=== PATIENT | female | born 1955 | race Caucasian/White ===

== ENCOUNTER 2023-02-06 09:45 | Day surgery (SDC) | payer MEDICARE, OTHER ==
[~2023-02-06 09:45] MED LIST: AMANTADINE100 M1 PO; CRANBERRY200 MG PO; LISINOPRIL10 MG PO; MULTIVITAMINS1 EAC7 PO; VITAMIN B COMP1 EACH PO
[2023-02-06 10:00] VITALS: BP 141/82
[2023-02-06] MEDS ORDERED: CALCIUM CIT 201 EACH PO (10:05)
[2023-02-06] MEDS ORDERED: PATADAY2.5 ML OPTH (10:05)
[2023-02-06] MEDS ORDERED: VITAMIN D350 MC3 PO (10:06)
[2023-02-06] MEDS ORDERED: ALENDRONATE SOD70 MG PO (10:07)
[2023-02-06] MEDS ORDERED: VITAMIN K100 MCG PO (10:07)
[2023-02-06] MEDS ORDERED: ZYRTEC10 M3 PO (10:10)
--- NOTE | 2023-02-06 12:39 | NUR ---
02/06/23 1239 Nina Donaldson 1220 PT TO PACU SLEEPING, WAKES TO VERBAL STIMULI. DENIES PAIN AND NAUSEA.
--- NOTE | 2023-02-06 12:48 | OR ---
[facility] [address], [place] [address] Signed DATE OF OPERATION: 02/06/2023 SURGEON: Bartolome Wynn MD PREOPERATIVE DIAGNOSIS: History of tubular adenomas, splenic flexure 2017. POSTOPERATIVE DIAGNOSIS: Normal colon to cecum. PROCEDURE: Total colonoscopy to cecum. ANESTHESIA: Intravenous sedation; fentanyl 100 mcg, Versed 6 mg. INDICATION: This 67-year-old white woman is a patient of PHILLIP Louise and underwent colonoscopy by me in 2016, at which time she was found to have a tubular adenoma at the splenic flexure. She is here for surveillance colonoscopy. She has no family history of colon cancer and no symptoms of bleeding, diarrhea, or constipation. She does have some constipation when eating dark chocolate, but when avoiding that no problems at all. She understands the risk of bleeding, infection, and perforation related to colonoscopy and wished to proceed. FINDINGS: The prep was good. Complete colonoscopy was undertaken of the cecum. There was no sign of polyps, diverticular formation, colitis, or cancer. DESCRIPTION OF PROCEDURE: The patient was brought to the endoscopy suite and placed in the lateral decubitus position, given intravenous sedation to the point of slurred speech and nystagmus. Digital rectal examination was normal. An Olympus video colonoscope was passed in the rectum and manipulated throughout the colon ultimately intubating the cecum itself. The ileocecal valve and appendiceal orifice were normal. The scope was withdrawn from that point and examination throughout showed no sign of abnormality specifically no polyps, diverticular formation, colitis, or cancer. Retroflexed view of the rectum was normal as well. The scope was removed and the patient was taken to the recovery room in good condition. Electronically Signed By: BARTOLOME WYNN MD 02/06/23 1248 PATIENT NAME: COLE NORRIS OPERATIVE REPORT DATE OF : 51 REPORT #: [id number] PHYSICIAN: BARTOLOME WYNN MD PCP: YVONNE SERRANO REPORT IS CONFIDENTIAL AND NOT TO BE RELEASED WITHOUT AUTHORIZATION [facility] [address], [place] [address] Signed CONCLUDING DIAGNOSIS: Normal colon to cecum. PLAN: Recommend repeat colonoscopy in 10 years, sooner if clinically indicated. She will return to the ongoing care of PHILLIP Louise. Bartolome Wynn MD JM/MODL /[id number] cc: PHILLIP Louise Copies: YVONNE SERRANO ~ Electronically Signed By: BARTOLOME WYNN MD 02/06/23 1248 PATIENT NAME: COLE NORRIS OPERATIVE REPORT DATE OF : 51 REPORT #: [id number] PHYSICIAN: BARTOLOME WYNN MD PCP: YVONEN SERRANO REPORT IS CONFIDENTIAL AND NOT TO BE RELEASED WITHOUT AUTHORIZATION
[2023-02-06 12:54] VITALS: BP 145/80
== END 2023-02-06 13:10 | disposition home or self-care (01) ==
LOC: DS 09:45 → OPS 09:45 → DS 11:15 → OPS 11:15
PROVIDERS: ATTEND Surgery
DX: Z12.11 Encounter for screening for malignant neoplasm of colon (principal); Z86.010 Personal history of colon polyps; I10 Essential (primary) hypertension; M19.90 Unspecified osteoarthritis, unspecified site; Z88.0 Allergy status to penicillin; Z79.899 Other long term (current) drug therapy
CPT/HCPCS: 99153; G0500; J2250; J3010; J7121